=== PATIENT | male | born 1995 | race Caucasian/White ===

== ENCOUNTER → 2017-08-02 | Outpatient (CLI) | payer OTHER ==
[~2017-08-02] MED LIST: MULT-506 PO
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
== END | disposition home or self-care (01) ==
LOC: C.CTS 16:28
PROVIDERS: ATTEND Student in an Organized Health Care Education/Training Program
DX: R51 Headache (principal); R53.2 Functional quadriplegia; V89.2XXA Person injured in unspecified motor-vehicle accident, traffic, initial encounter